=== PATIENT | male | born 1935 | race Two or more races ===

== ENCOUNTER 2017-02-21 05:20 | Emergency (ER) | payer MEDICARE, OTHER ==
[~2017-02-21] VITALS: Ht 170.2 cm; Wt 74.8 kg
--- NOTE | 2017-02-21 05:40 | NUR ---
Dr. bradley at bedside for MSE
[2017-02-21] MEDS ORDERED: ALPRAZOLAM 0.25 MG TABLET PO ONE (05:45)
--- NOTE | 2017-02-21 06:02 | NUR ---
Pt stable for discharge per Dr. Faria. IV dc'd, catheter intact. Drsg applied. No problems noted to site. Pt and son given ACI. Both verbalized understanding of dc instructions. Pt ambulated out of ER with steady gait.
[2017-02-21] MEDS ORDERED: ALPRAZOLAM 0.25 MG TABLET ONE (06:04)
[2017-02-21 06:05] VITALS: BP 165/91
== END 2017-02-21 06:05 | disposition home or self-care (01) ==
LOC: ER 05:25
DX: F41.9 Anxiety disorder, unspecified (principal); R06.4 Hyperventilation; I10 Essential (primary) hypertension; M10.9 Gout, unspecified
CPT/HCPCS: 93005; A4663

== ENCOUNTER 2019-01-10 11:20 | Emergency (ER) | payer MEDICARE, OTHER ==
[~2019-01-10] VITALS: Ht 170.2 cm; Wt 74.8 kg
[2019-01-10] MEDS ORDERED: predniSONE 50 MG TABLET ONE (11:53)
[2019-01-10] MEDS ORDERED: predniSONE 10 MG TABLET ONE (11:53)
[2019-01-10] MEDS ORDERED: predniSONE 20 MG TABLET PO ONE (12:00)
--- NOTE | 2019-01-10 12:03 | NUR ---
Patient discharged to home in stable conditon. Written and verbal after care instructions given. Patient verbalizes understanding of instructions.pt walked with steady gait.
== END 2019-01-10 12:07 | disposition home or self-care (01) ==
LOC: ER 11:20
DX: S80.862A Insect bite (nonvenomous), left lower leg, initial encounter (principal); S80.861A Insect bite (nonvenomous), right lower leg, initial encounter; S40.262A Insect bite (nonvenomous) of left shoulder, initial encounter; L03.116 Cellulitis of left lower limb; L03.115 Cellulitis of right lower limb; L03.114 Cellulitis of left upper limb; I10 Essential (primary) hypertension; F41.9 Anxiety disorder, unspecified; W57.XXXA Bitten or stung by nonvenomous insect and other nonvenomous arthropods, initial encounter; Y93.89 Activity, other specified; Y92.89 Other specified places as the place of occurrence of the external cause; Y99.8 Other external cause status
CPT/HCPCS: 99283; J7512 ×2; A4663

== ENCOUNTER 2019-01-18 16:06 | Emergency (ER) | payer MEDICARE ==
[~2019-01-18] VITALS: Ht 170.2 cm; Wt 74.8 kg
--- NOTE | 2019-01-18 17:02 | NUR ---
Patient discharged to home in stable conditon. Written and verbal after care instructions given. Patient verbalizes understanding of instructions.
== END 2019-01-18 17:03 | disposition home or self-care (01) ==
LOC: ER 16:06
DX: L55.1 Sunburn of second degree (principal); I10 Essential (primary) hypertension; F41.9 Anxiety disorder, unspecified
CPT/HCPCS: A4663

== ENCOUNTER 2019-01-25 19:22 | Emergency (ER) | payer MEDICARE ==
[~2019-01-25] VITALS: Ht 165.1 cm; Wt 74.8 kg
--- NOTE | 2019-01-25 19:45 | NUR ---
RAJNI BELLA AT BEDSIDE FOR MSE.
--- NOTE | 2019-01-25 20:24 | NUR ---
Patient discharged to home in stable conditon WITH [facility] PATIENT HOME. Written and verbal after care instructions given. Patient verbalizes understanding of instructions. WALKED OUT OF ER WITH NO DISTRESS NOTED.
== END 2019-01-25 20:25 | disposition home or self-care (01) ==
LOC: ER 19:22
DX: L25.9 Unspecified contact dermatitis, unspecified cause (principal); I10 Essential (primary) hypertension; F41.9 Anxiety disorder, unspecified
CPT/HCPCS: A4663

== ENCOUNTER 2023-09-08 15:35 | Emergency (ER) | payer MEDICARE, OTHER ==
[~2023-09-08] VITALS: Ht 170.2 cm; Wt 72.6 kg
[2023-09-08] MEDS ORDERED: LOSA100T3 PO (15:54)
[2023-09-08] MEDS ORDERED: THIAMINE HCL 100 MG TABLET ONE (16:17)
[2023-09-08] MEDS ORDERED: LORAZEPAM 1 MG TABLET ONE (16:17)
[2023-09-08] MEDS: LORAZEPAM 0.5 MG TABLET PO ONE (16:26)
[2023-09-08] MEDS: THIAMINE HCL 100 MG TABLET PO ONE (16:26)
[2023-09-08 17:25] VITALS: O2SAT 96
[2023-09-08] MEDS ORDERED: LORA0.5T48 PO (17:48)
[2023-09-09 03:06] LABS: *BILIRUBIN,URIN NEGATIVE (NEGATIVE); *COLOR,URINE YELLOW (YELLOW); *KETONES,URINE TRACE (NEGATIVE); *PROTEIN,URINE 1+ (NEGATIVE); *UROBILINOGEN,URINE 0.2 E.U./dl (NORMAL); LEUKOCYTE ESTERASE ,URINE TRACE (NEGATIVE); NITRITE, URINE POSITIVE (NEGATIVE); UGLUCOSE NEGATIVE (NEGATIVE)
[2023-09-09 03:11] LABS: *BLOOD, URINE TRACE (NEGATIVE)
[2023-09-09 03:12] LABS: *CLARITY,URINE SLIGHTLY CLOUDY (CLEAR)
[2023-09-09 03:29] LABS: BACTERIA,URINE MANY /HPF (NONE SEEN); SQUAMOUS EPITHELIAL CELL,UR FEW /HPF (NONE SEEN); WBC,URINE 80-100 /HPF (0-3)
== END 2023-09-08 17:58 | disposition home or self-care (01) ==
LOC: ER 15:36
DX: F41.9 Anxiety disorder, unspecified (principal); R10.84 Generalized abdominal pain; I10 Essential (primary) hypertension; Z98.890 Other specified postprocedural states; Z79.899 Other long term (current) drug therapy
CPT/HCPCS: 93005; A4606; A4663

== ENCOUNTER 2023-11-08 04:27 | Emergency (ER) | payer MEDICARE, OTHER ==
[~2023-11-08] VITALS: Ht 170.2 cm; Wt 72.6 kg
[~2023-11-08 04:27] MED LIST: LORA0.5T48 PO; LOSA100T3 PO
[2023-11-08] MEDS ORDERED: LORAZEPAM 1 MG TABLET ONE (05:24)
[2023-11-08] MEDS ORDERED: MAG HYDROX/AL HYDROX/SIMETH 30 ML LIQUID UDC ONE ×2 (05:25→05:30)
[2023-11-08] MEDS: MAG HYDROX/AL HYDROX/SIMETH 30 ML LIQUID UDC PO ONE (05:35)
[2023-11-08] MEDS: LORAZEPAM 0.5 MG TABLET PO ONE (05:35)
[2023-11-08] MEDS ORDERED: LORA-259 PO (05:43)
[2023-11-08] MEDS ORDERED: SIME125C PO (05:43)
[2023-11-08 05:51] VITALS: BP 150/80; TEMP 98.1; O2SAT 98
== END 2023-11-08 05:53 | disposition home or self-care (01) ==
LOC: ER 04:54
DX: I10 Essential (primary) hypertension (principal); R14.1 Gas pain; F41.9 Anxiety disorder, unspecified; Z79.899 Other long term (current) drug therapy
CPT/HCPCS: A4606; A4663

== ENCOUNTER 2024-01-30 11:35 | Emergency (ER) | payer MEDICARE, OTHER ==
[~2024-01-30] VITALS: Ht 170.2 cm; Wt 65.8 kg
[~2024-01-30 11:35] MED LIST changes: +LORA-259 PO; +SIME125C PO
[2024-01-30] MEDS ORDERED: LACT10SO58 PO (12:42)
[2024-01-30 12:54] VITALS: BP 140/79; TEMP 98; O2SAT 99
== END 2024-01-30 12:54 | disposition home or self-care (01) ==
LOC: ER 11:35
DX: N40.0 Benign prostatic hyperplasia without lower urinary tract symptoms (principal); K59.00 Constipation, unspecified; F41.9 Anxiety disorder, unspecified; I11.9 Hypertensive heart disease without heart failure; Z79.899 Other long term (current) drug therapy; Z98.890 Other specified postprocedural states
CPT/HCPCS: A4606; A4663

== ENCOUNTER 2024-02-01 12:01 | Emergency (ER) | payer MEDICARE, OTHER ==
[~2024-02-01] VITALS: Ht 170.2 cm; Wt 65.8 kg
[~2024-02-01 12:01] MED LIST changes: +LACT10SO58 PO
[2024-02-01] MEDS: MAGNESIUM HYDROXIDE 30 ML LIQUID UDC PO ONE (12:15)
[2024-02-01 13:17] VITALS: BP 148/76; O2SAT 98
[2024-02-01] MEDS ORDERED: MAGNESIUM HYDROXIDE 30 ML LIQUID UDC ONE (13:18)
== END 2024-02-01 13:24 | disposition home or self-care (01) ==
LOC: ER 12:03
DX: K59.00 Constipation, unspecified (principal); I11.9 Hypertensive heart disease without heart failure; F41.9 Anxiety disorder, unspecified; Z98.890 Other specified postprocedural states; Z79.899 Other long term (current) drug therapy
CPT/HCPCS: 74018; A4606; A4663

== ENCOUNTER 2024-07-15 09:44 | Emergency (ER) | payer MEDICARE, OTHER ==
[~2024-07-15] VITALS: Ht 162.6 cm; Wt 69.9 kg
[2024-07-15] MEDS ORDERED: POLY17PO4 PO (10:16)
[2024-07-15 11:50] VITALS: BP 139/78; O2SAT 100
== END 2024-07-15 11:53 | disposition home or self-care (01) ==
LOC: ER 09:44
DX: K59.00 Constipation, unspecified (principal); F41.9 Anxiety disorder, unspecified; I11.9 Hypertensive heart disease without heart failure; M10.9 Gout, unspecified; Z79.899 Other long term (current) drug therapy; Z98.890 Other specified postprocedural states; Z87.2 Personal history of diseases of the skin and subcutaneous tissue
CPT/HCPCS: A4606; A4663

== ENCOUNTER 2024-07-22 23:38 | Emergency (ER) | payer MEDICARE, OTHER ==
[~2024-07-22] VITALS: Ht 177.8 cm; Wt 68.0 kg
[~2024-07-22 23:38] MED LIST changes: +POLY17PO4 PO
[2024-07-23 01:27] VITALS: BP 144/68; O2SAT 97
== END 2024-07-23 | disposition left against medical advice (07) ==
LOC: ER 07-23
DX: R10.9 Unspecified abdominal pain (principal); F41.9 Anxiety disorder, unspecified; I10 Essential (primary) hypertension; M10.9 Gout, unspecified; Z79.899 Other long term (current) drug therapy; Z98.890 Other specified postprocedural states
CPT/HCPCS: 74150; A4606; A4663